=== PATIENT | male | born 1965 | race Caucasian/White ===

== ENCOUNTER → 2017-07-23 17:30 | Outpatient (CLI) | payer MEDICAID ==
[2017-07-23 19:51] LABS: ERYTHROCYTE SEDIMENTATION RATE 8 mm/hr (0-20)
[2017-07-28 12:12] LABS: BARTONELLA - HENSELAE IGG Negative titer (Neg:<1:320); BARTONELLA - HENSELAE IGM Negative titer (Neg:<1:100); BARTONELLA - QUINTANA IGG Negative titer (Neg:<1:320); BARTONELLA - QUINTANA IGM Negative titer (Neg:<1:100)
[2017-07-28 16:13] LABS: Q FEVER PHASE I AB Negative (Neg:<1:16); Q FEVER PHASE II AB Negative (Neg:<1:16)
[2017-07-29 13:17] LABS: RMSF IGM 0.82 index (0.00-0.89)
[2017-07-30 11:05] LABS: EHRLICHIA CHAFF IGG Negative; EHRLICHIA CHAFF IGM Negative
[2017-07-30 11:06] LABS: HGE IGG TITER Negative; HGE IGM TITER Negative
[2017-08-04 10:48] LABS: F. TULARENSIS - IGG Negative
[2017-08-04 10:49] LABS: F. TULARENSIS - IGM Negative
== END | disposition home or self-care (01) ==
LOC: D.LABREF 17:30
PROVIDERS: Student in an Organized Health Care Education/Training Program
DX: R53.83 Other fatigue (principal); S00.96XA Insect bite (nonvenomous) of unspecified part of head, initial encounter